=== PATIENT | female | born 1970 | race African-American/Black ===

== ENCOUNTER 2016-10-23 19:00 | Emergency (ER) | payer OTHER ==
[~2016-10-23] VITALS: Ht 170.2 cm; Wt 127.0 kg
[~2016-10-23 19:00] MED LIST: ALBUTEROL SULF8.5 GM INH; AUGMENTIN 875-1 EAC1 ORAL; AUGMENTIN XR 11 EACH ORAL; CEFDINIR300 MG PO; CLARITIN5 MG ORAL; CYCLOBENZAPRINE10 MG ORAL; GUAIFENESIN-CO118 ML ORAL; HYDROCHLOROTHIA25 MG ORAL; IBUPROFEN200 MG ORAL; IBUPROFEN600 MG ORAL; LEVAQUIN750 MG ORAL; LEVOTHYROXINE100 MCG ORAL; MELOXICAM7.5 MG PO; METOPROLOL TART50 M1 ORAL; NORCO 5-325 TA1 EACH ORAL; OMEPRAZOLE20 M2 ORAL; PEPCID40 MG PO; PROAIR HFA8.5 GM INH; PSEUDOEPHEDRINE30 MG PO; SALINE NASAL SP45 ML NASAL; SENNA8.6 M3 PO; TRAMADOL HCL50 MG ORAL; ZOCOR20 M1 ORAL; ZYRTEC10 MG ORAL
[2016-10-23] MEDS ORDERED: METFORMIN HCL1000 M1 ORAL (19:17)
[2016-10-23 19:22] VITALS: BP 141/91
[2016-10-23] MEDS ORDERED: NITROFURANTOIN100 M2 ORAL (19:25)
[2016-10-23 19:31] VITALS: BP 141/91
--- NOTE | 2016-10-23 22:11 | Emergency Room Report ---
History of Present Illness General Chief Complaint: Allergic Reaction Source: Patient Present Illness HPI Patient is a 46-year-old female who presented after having high redness as well as facial discomfort. Patient had previous similar symptoms in the past. As she recently been diagnosed with urinary tract infection. The patient had been started on Bactrim. She denied any fever. She denied any severe abdominal pain. The patient thinks that she may have an allergic reaction as previously to Bactrim. She reports also taking ibuprofen as well as Flexeril. She states she's taken those medications in the past without any problems. Allergies: Coded Allergies: ASPIRIN (Verified Allergy, Intermediate, severe bleeding, 05/25/13) Patient History Past Medical History: see triage record Last Menstrual Period: last month Reviewed Nursing Documentation: PMH: Agreed, PSxH: Agreed Nursing Documentation-PMH Hx Hypertension: Yes Hx Pacemaker: No Hx Asthma: Yes Hx COPD: No Hx Diabetes: Yes Hx Cancer: No Hx Gastrointestinal Problems: Yes - acid reflux Hx Dialysis: No Hx Neurological Problems: No Hx Cerebrovascular Accident: No Hx Seizures: No Hx Dizziness: Yes Review of Systems All Other Systems: negative except mentioned in HPI Physical Exam Vital Signs Date Time Temp Pulse Resp B/P Pulse Ox O2 Delivery O2 Flow Rate FiO2 10/23/16 19:12 98.6 110 16 141/91 98 Room Air General Appearance: well appearing, no apparent distress, alert, GCS 15 Head: normocephalic, atraumatic ENT: hearing grossly normal, normal voice Neck: full range of motion, supple Respiratory: no respiratory distress, speaking full sentences Cardiovascular #1: normal inspection, regular rate, rhythm Gastrointestinal: normal inspection Musculoskeletal: normal inspection, normal range of motion, no calf tenderness Neurologic: normal inspection, alert, oriented x3, responsive, table maker III-XII nml as tested, normal gait Psychiatric: normal inspection, mood/affect normal Skin: no rash Medical Decision Making Diagnostic Impression: Primary Impression: Allergic reaction ER Course Patient presented for possible allergic reaction. Differential diagnosis included was not limited to Law-Liang syndrome, urticaria, erythema multiforme, contact dermatitis. Patient's benign exam and does not appear to require any further imaging or laboratory testing at this time. The patient was advised to discontinue use of Bactrim. The patient was given prescription for Macrobid. She is advised followup with her primary care physician. She denies return if she began having increased eye pain blistering or other concerns. Last Vital Signs Date Time Temp Pulse Resp B/P Pulse Ox O2 Delivery O2 Flow Rate FiO2 10/23/16 19:31 98.6 16 141/91 98 Room Air 10/23/16 19:12 110 Status: improved Disposition: HOME, SELF-CARE Condition: Stable Scripts Nitrofurantoin Monohyd/M-Cryst* (MACROBID 100 MG*) 100 Mg Capsule 100 MG ORAL EVERY 12 HOURS, #10 CAP Prov: Marco Simms 10/23/16 Referrals: [facility]ERR[facility] (PCP) Patient Instructions: Drug Allergy Marco Simms Oct 23, 2016 22:11
== END 2016-10-23 19:31 | disposition home or self-care (01) ==
LOC: EMR 19:30
DX: T78.40XA Allergy, unspecified, initial encounter (principal); X58.XXXA Exposure to other specified factors, initial encounter; E11.9 Type 2 diabetes mellitus without complications; I10 Essential (primary) hypertension; J45.909 Unspecified asthma, uncomplicated; K21.9 Gastro-esophageal reflux disease without esophagitis; Z88.6 Allergy status to analgesic agent
CPT/HCPCS: 99283

== ENCOUNTER 2016-11-22 00:28 | Emergency (ER) | payer OTHER ==
[~2016-11-22] VITALS: Ht 170.2 cm; Wt 122.5 kg
[~2016-11-22 00:28] MED LIST changes: +METFORMIN HCL1000 M1 ORAL; +NITROFURANTOIN100 M2 ORAL
[2016-11-22] MEDS ORDERED: Morphine Sulfate 4mg/ml Inj IVP ONE (00:45)
[2016-11-22 01:03] LABS: BASOPHILS % (AUTO) 0.9 % (0.0-2.0); EOSINOPHILS % (AUTO) 3.1 % (0.0-3.0); LYMPHOCYTES % (AUTO) 37.2 % (20.0-45.0); MEAN CORPUSCULAR HEMOGLOBIN 25.3 PG (27.0-31.0); MEAN CORPUSCULAR HGB CONC 31.7 G/DL (32.0-36.0); MEAN CORPUSCULAR VOLUME 80 FL (80-99); MEAN PLATELET VOLUME 6.8 FL (6.5-10.1); NEUTROPHILS % (AUTO) 52.8 % (45.0-75.0); PLATELET COUNT 442 K/UL (150-450); RED BLOOD COUNT 4.82 M/UL (4.20-5.40); RED CELL DISTRIBUTION WIDTH 14.1 % (11.6-14.8); WHITE BLOOD COUNT 13.3 K/UL (4.8-10.8)
[2016-11-22 01:04] LABS: APPEARANCE,URINE CLEAR; KETONES,URINE NEGATIVE (NEGATIVE); LEUKOCYTE ESTERASE ,URINE 1+ (NEGATIVE); NITRITE,URINE NEGATIVE (NEGATIVE); PH,URINE 6 (4.5-8.0); PROTEIN,URINE 3+ (NEGATIVE); UROBILINOGEN,URINE NORMAL MG/DL (0.0-1.0)
[2016-11-22 01:16] LABS: BACTERIA,URINE FEW /HPF; HYALINE CASTS, URINE 0-2 /LPF; RBC,URINE 0-2 /HPF (0 - 2); SQUAMOUS EPITHELIAL CELL,UR FEW /LPF (NONE/OCC); WBC,URINE 0-2 /HPF (0 - 2)
[2016-11-22 01:18] LABS: ALANINE AMINOTRANSFERASE 39 U/L (3-33); ANION GAP 13 (5-15); ASPARTATE AMINO TRANSFERASE 61 U/L (5-40); CALCIUM 9.7 mg/dL (8.6-10.2); CARBON DIOXIDE 30 mEQ/L (20-30); CHLORIDE 89 mEQ/L (98-107); CREATININE 0.9 mg/dL (0.5-0.9); GLOMERULAR FILTRATION RATE > 60 mL/min (>60); HEMOLYSIS 4; POTASSIUM 2.9 mEQ/L (3.4-4.9); SODIUM 132 mEQ/L (135-145); TOTAL PROTEIN 8.7 g/dL (6.6-8.7); TROPONIN I < 0.30 ng/mL (<=0.30)
[2016-11-22 01:28] LABS: CKMB < 1.5 ng/mL (< 3.8)
[2016-11-22 01:30] VITALS: BP 112/76
[2016-11-22 02:43] VITALS: BP 122/73
[2016-11-22 03:05] VITALS: BP 122/73
--- NOTE | 2016-11-22 03:27 | Emergency Room Report ---
History of Present Illness General Chief Complaint: Chest Pain Source: Patient Present Illness HPI 46-year-old female presents to ED late of chest pain. Per EMS patient noted at chest pain which started approximately 30 minutes prior to arrival. Sudden onset. Left-sided. 8 out of 10. Sharp. Worse with deep breaths. Patient was given nitroglycerin with no relief. Denies fevers or chills. Denies cough. Denies smoking or drug use. No other aggravating relieving factors. Denies any other associated symptoms Allergies: Coded Allergies: ASPIRIN (Verified Allergy, Intermediate, severe bleeding, 05/25/13) SULFA (SULFONAMIDE ANTIBIOTICS) (Unverified Allergy, Unknown, 11/22/16) Patient History Past Medical History: DM, HTN, asthma, GERD Past Surgical History: none Pertinent Family History: none Social History: Denies: alcohol use, drug use, smoking Last Menstrual Period: last night Now: No Immunizations: UTD Reviewed Nursing Documentation: PMH: Agreed, PSxH: Agreed Nursing Documentation-PMH Past Medical History: No History, Except For Hx Hypertension: Yes Hx Pacemaker: No Hx Asthma: Yes Hx COPD: No Hx Diabetes: Yes Hx Cancer: No Hx Gastrointestinal Problems: Yes - acid reflux Hx Dialysis: No Hx Neurological Problems: No Hx Cerebrovascular Accident: No Hx Seizures: No Hx Dizziness: Yes Review of Systems All Other Systems: negative except mentioned in HPI Physical Exam Vital Signs Date Time Temp Pulse Resp B/P Pulse Ox O2 Delivery O2 Flow Rate FiO2 11/22/16 00:15 99.0 106 20 113/79 100 Room Air 11/22/16 01:30 2.0 Sp02 EP Interpretation: reviewed, normal General Appearance: no apparent distress, alert, GCS 15, non-toxic, obese Head: normocephalic, atraumatic Eyes: bilateral eye PERRL, bilateral eye normal inspection ENT: hearing grossly normal, normal pharynx, no angioedema, normal voice Neck: full range of motion, supple/symm/no masses Respiratory: chest non-tender, lungs clear, normal breath sounds, speaking full sentences Cardiovascular #1: regular rate, rhythm, no edema Cardiovascular #2: 2+ carotid (R), 2+ carotid (L), 2+ radial (R), 2+ radial (L) , 2+ dorsalis pedis (R), 2+ dorsalis pedis (L) Gastrointestinal: normal bowel sounds, non tender, soft, non-distended, no guarding, no rebound Rectal: deferred Genitourinary: normal inspection, no CVA tenderness Musculoskeletal: back normal, gait/station normal, normal range of motion, non- tender Neurologic: alert, oriented x3, responsive, motor strength/tone normal, sensory intact, speech normal Psychiatric: judgement/insight normal, memory normal, mood/affect normal, no suicidal/homicidal ideation Reflexes: 3+ bicep (R), 3+ bicep (L), 3+ tricep (R), 3+ tricep (L), 3+ knee (R) , 3+ knee (L) Skin: normal color, no rash, warm/dry, well hydrated Lymphatic: no adenopathy Medical Decision Making Diagnostic Impression: Primary Impression: ACS (acute coronary syndrome) ER Course Hospital Course 46-year-old female presents ED complaining of left-sided chest pain, shortness of breath Differential diagnoses include: [place]/unstable angina, contusion, muscle strain, PTX, rib fracture Clinical course Patient placed on stretcher. on hall monitor. After initial history and physical I ordered labs, EKG, chest x-ray, morphine labs reviewed- no leukocytosis, hb/hct stable, electrolytes ok, D-dimer > 500, trop negative EKG - NSR, no acute changes interpreted by me Chest x-ray- L effusion CTA chest performed to rule out PE which was negative Because of insurance patient will be transferred I. I feel this is a highly complex case requiring extensive working including EKG/Rhythm strip, Xray/CT/US, Blood/urine lab work, repeat exams while in ED, and administration of strong opiates/narcotics for pain control, admission to hospital or close patient follow up. Diagnosis - ACS Patient transferred in serious condition Labs Test 11/22/16 00:35 White Blood Count 13.3 K/UL (4.8-10.8) Red Blood Count 4.82 M/UL (4.20-5.40) Hemoglobin 12.2 G/DL (12.0-16.0) Hematocrit 38.5 % (37.0-47.0) Mean Corpuscular Volume 80 FL (80-99) Mean Corpuscular Hemoglobin 25.3 PG (27.0-31.0) Mean Corpuscular Hemoglobin Concent 31.7 G/DL (32.0-36.0) Red Cell Distribution Width 14.1 % (11.6-14.8) Platelet Count 442 K/UL (150-450) Mean Platelet Volume 6.8 FL (6.5-10.1) Neutrophils (%) (Auto) 52.8 % (45.0-75.0) Lymphocytes (%) (Auto) 37.2 % (20.0-45.0) Monocytes (%) (Auto) 6.0 % (1.0-10.0) Eosinophils (%) (Auto) 3.1 % (0.0-3.0) Basophils (%) (Auto) 0.9 % (0.0-2.0) D-Dimer 558 ng/mL (<500) Urine Color Yellow Urine Appearance Clear Urine pH 6 (4.5-8.0) Urine Specific [place] 1.015 (1.005-1.035) Urine Protein 3+ (NEGATIVE) Urine Glucose (UA) Negative (NEGATIVE) Urine Ketones Negative (NEGATIVE) Urine Occult Blood Negative (NEGATIVE) Urine Nitrite Negative (NEGATIVE) Urine Bilirubin Negative (NEGATIVE) Urine Urobilinogen Normal MG/DL (0.0-1.0) Urine Leukocyte Esterase 1+ (NEGATIVE) Urine RBC 0-2 /HPF (0 - 2) Urine WBC 0-2 /HPF (0 - 2) Urine Squamous Epithelial Cells Few /LPF (NONE/OCC) Urine Bacteria Few /HPF (NONE) Urine Hyaline Casts 0-2 /LPF (NONE) Urine HCG, Qualitative Negative Sodium Level 132 mEQ/L (135-145) Potassium Level 2.9 mEQ/L (3.4-4.9) Chloride Level 89 mEQ/L (98-107) Carbon Dioxide Level 30 mEQ/L (20-30) Anion Gap 13 (5-15) Blood Urea Nitrogen 12 mg/dL (7-23) Creatinine 0.9 mg/dL (0.5-0.9) Estimat Glomerular Filtration Rate > 60 mL/min (>60) Glucose Level 212 mg/dL (74-106) Calcium Level 9.7 mg/dL (8.6-10.2) Total Bilirubin 0.3 mg/dL (0.0-1.2) Aspartate Amino Transf (AST/SGOT) 61 U/L (5-40) Alanine Aminotransferase (ALT/SGPT) 39 U/L (3-33) Alkaline Phosphatase 119 U/L (35-104) Total Creatine Kinase 93 U/L (26-140) Creatine Kinase MB < 1.5 ng/mL (< 3.8) Creatine Kinase MB Relative Index 1.6 Troponin I < 0.30 ng/mL (<=0.30) Pro-B-Type Natriuretic Peptide 5 pg/mL (0-125) Total Protein 8.7 g/dL (6.6-8.7) Albumin 4.4 g/dL (3.5-5.2) Globulin 4.3 g/dL Albumin/Globulin Ratio 1.0 (1.0-2.7) Urine Opiates Screen Negative (NEGATIVE) Urine Barbiturates Screen Negative (NEGATIVE) Phencyclidine (PCP) Screen Negative (NEGATIVE) Urine Amphetamines Screen Negative (NEGATIVE) Urine Benzodiazepines Screen Negative (NEGATIVE) Urine Cocaine Screen Negative (NEGATIVE) Urine Marijuana (THC) Screen Negative (NEGATIVE) EKG Diagnostic Results Rate: normal Rhythm: NSR ST Segments: no acute changes ASA given to the pt in ED: No - allergic to aspirin Rhythm Strip Diag. Results EP Interpretation: yes Rhythm: NSR, no PVC's, no ectopy Chest X-Ray Diagnostic Results Chest X-Ray Diagnostic Results : Chest X-Ray Ordered: Yes # of Views/Limited/Complete: 1 View Indication: Chest Pain EP Interpretation: Yes Interpretation: no consolidation, no pneumothorax, no acute cardiopulmonary disease, other - L effusion Impression: Other - L effusion Interpreting ER Provider: Electronically signed by Kenan Martinez MD CT/MRI/US Diagnostic Results CT/MRI/US Diagnostic Results : Imaging Test Ordered: CTA chest Impression no evidence of PE Last Vital Signs Date Time Temp Pulse Resp B/P Pulse Ox O2 Delivery O2 Flow Rate FiO2 11/22/16 02:43 94 24 Nasal Cannula 2.0 11/22/16 02:43 98.8 122/73 11/22/16 01:30 99 Status: improved Disposition: ADMITTED INPATIENT Condition: Serious Referrals: [facility] (PCP) KENAN MARTINEZ M.D. Nov 22, 2016 03:27
--- NOTE | 2016-11-22 10:09 | Diagnostic Imaging Report ---
Indication: Chest pain Technique: Continuous helical transaxial imaging of the chest was obtained from the thoracic inlet to the upper abdomen during rapid intravenous contrast administration. Arterial phase of enhancement obtained. Coronal 2-D reformats were also obtained and maximum intensity projection images in multiple planes. Study obtained in a Siemens sensation [address] Total Dose length Product (DLP): [address] Dose Index Volume (CTDIvol): 13, 13, 44 mGy Comparison: None Findings: The pulmonary artery is well opacified and shows no filling defects. The lungs are clear except for some minimal posterior basilar atelectasis.. There is no adenopathy, pleural or pericardial effusions are identified. The aortic dissection or aneurysm identified within the chest. Visualized part of the upper abdomen show severe low-attenuation of the liver which appears prominent in size although not completely imaged. Impression: No evidence of pulmonary embolus, aortic dissection or aneurysm. Moderate to severe fatty liver with suggestion of liver enlargement. The CT scanner at [facility] is accredited by the [employer] and the scans are performed using dose optimization techniques as appropriate to a performed exam including Automatic Exposure control.
--- NOTE | 2016-11-22 11:11 | Diagnostic Imaging Report ---
Indication: Chest Comparison: 12/04/14 A single view chest radiograph was obtained. Findings: Cardiomediastinal appearance is within normal limits for age. Pulmonary vascularity is appropriate. The diaphragmatic contour is smooth and costophrenic angles are sharp. No pleural effusions are identified. The bones are unremarkable. The study is limited because of lordotic projection angle. Impression: No acute findings
--- NOTE | 2016-11-23 16:39 | Cardiology Report ---
APPROVED REPORT EKG Measurement Heart [id number] Sinus tachycardia Cannot rule out Anterior infarct, age undetermined Abnormal ECG
== END 2016-11-22 03:05 | disposition short-term general hospital (02) ==
LOC: EDBD 00:28 → EMR 01:01
DX: I24.9 Acute ischemic heart disease, unspecified (principal); I10 Essential (primary) hypertension; J45.909 Unspecified asthma, uncomplicated; E11.9 Type 2 diabetes mellitus without complications; K21.9 Gastro-esophageal reflux disease without esophagitis; Z88.6 Allergy status to analgesic agent; Z88.2 Allergy status to sulfonamides
CPT/HCPCS: 36415; 71010; 71275; 80053; 80300; 81003; 81025; 82550; 82553; 83880; 84484; 85025; 85379; 93005; 96374; 96375; 99285; J2270; J7040; Q9967; J8499

== ENCOUNTER 2017-07-05 10:36 | Emergency (ER) | payer OTHER ==
[~2017-07-05] VITALS: Ht 170.2 cm; Wt 122.5 kg
[2017-07-05] MEDS ORDERED: BACLOFEN10 MG ORAL (10:55)
[2017-07-05] MEDS ORDERED: VICTOZA 2-0.6 MG/0.1 SUBQ (10:55)
[2017-07-05] MEDS ORDERED: LOSARTAN POTASS25 MG ORAL (10:55)
[2017-07-05] MEDS ORDERED: METFORMIN HCL1000 M1 ORAL (10:55)
[2017-07-05] MEDS ORDERED: Bacitracin Oint UD TOPIC ONE ×2 (11:12→11:15)
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
[2017-07-05] MEDS ORDERED: oxyCODONE HCL/Acetaminophen 5/325mg ORAL ONE (12:00)
[2017-07-05 12:04] VITALS: BP 158/100
[2017-07-05 12:05] VITALS: BP 158/100
[2017-07-05] MEDS ORDERED: TYLENOL EXTRA500 MG ORAL (12:13)
== END 2017-07-05 12:07 | disposition home or self-care (01) ==
LOC: EMR 11:00
DX: T23.201A Burn of second degree of right hand, unspecified site, initial encounter (principal); X15.0XXA Contact with hot stove (kitchen), initial encounter; Y92.9 Unspecified place or not applicable; I10 Essential (primary) hypertension; J45.909 Unspecified asthma, uncomplicated; E11.9 Type 2 diabetes mellitus without complications; K21.9 Gastro-esophageal reflux disease without esophagitis; Z88.2 Allergy status to sulfonamides; Z88.6 Allergy status to analgesic agent; Z88.8 Allergy status to other drugs, medicaments and biological substances
CPT/HCPCS: 99283

== ENCOUNTER 2017-09-10 09:29 | Emergency (ER) | payer OTHER ==
[~2017-09-10] VITALS: Ht 170.2 cm; Wt 117.9 kg
[~2017-09-10 09:29] MED LIST changes: +BACLOFEN10 MG ORAL; +LOSARTAN POTASS25 MG ORAL; +TYLENOL EXTRA500 MG ORAL; +VICTOZA 2-0.6 MG/0.1 SUBQ
[2017-09-10 09:41] VITALS: BP 106/63
[2017-09-10] MEDS ORDERED: NITROGLYCERIN2.5 M1 PO (10:16)
[2017-09-10] MEDS ORDERED: VICTOZA 2-0.6 MG/0.1 SUBQ (10:16)
[2017-09-10] MEDS ORDERED: ATORVASTATIN CA40 MG ORAL (10:16)
[2017-09-10 10:25] LABS: APPEARANCE,URINE CLEAR; BILIRUBIN, URINE NEGATIVE (NEGATIVE); COLOR,URINE PALE YELLOW; GLUCOSE, URINE (UA) NEGATIVE (NEGATIVE); KETONES,URINE NEGATIVE (NEGATIVE); LEUKOCYTE ESTERASE ,URINE NEGATIVE (NEGATIVE); NITRITE,URINE NEGATIVE (NEGATIVE); PH,URINE 7 (4.5-8.0); PROTEIN,URINE NEGATIVE (NEGATIVE); UROBILINOGEN,URINE NORMAL MG/DL (0.0-1.0)
--- NOTE | 2017-09-10 10:44 | Emergency Room Report ---
History of Present Illness General Chief Complaint: Abdominal Pain Source: Patient Present Illness HPI Patient present with complaints of suprapubic discomfort Foul-smelling urine however she also complains of right inguinal and lower abdominal pain Off-and-on for the past 7 days She felt that she had increased nausea as well and vomited earlier denies any upper abdominal pain Denies any vaginal discharge Allergies: Coded Allergies: ASPIRIN (Verified Allergy, Intermediate, severe bleeding, 05/25/13) SERTRALINE (Verified Allergy, Unknown, Hives, 07/05/17) SULFA (SULFONAMIDE ANTIBIOTICS) (Unverified Allergy, Unknown, 11/22/16) Patient History Past Medical History: see triage record Pertinent Family History: none Last Menstrual Period: 08/30/17 Now: No Reviewed Nursing Documentation: PMH: Agreed; PSxH: Agreed Nursing Documentation-PMH Past Medical History: No History, Except For Hx Hypertension: Yes Hx Pacemaker: No Hx Asthma: Yes Hx COPD: No Hx Diabetes: Yes - DM2 Hx Cancer: No Hx Gastrointestinal Problems: Yes - acid reflux, tube ligation Hx Dialysis: No Hx Neurological Problems: No Hx Cerebrovascular Accident: No Hx Seizures: No Hx Dizziness: Yes Review of Systems All Other Systems: negative except mentioned in HPI Physical Exam Vital Signs Date Time Temp Pulse Resp B/P (MAP) Pulse Ox O2 Delivery O2 Flow Rate FiO2 09/10/17 09:31 97.7 95 18 139/92 98 Room Air 97.7 Sp02 EP Interpretation: reviewed, normal General Appearance: well appearing, no apparent distress Head: normocephalic, atraumatic Eyes: bilateral eye PERRL, bilateral eye EOMI ENT: hearing grossly normal, normal pharynx, TMs + canals normal, uvula midline Neck: full range of motion, supple, no meningismus, no bony tend Respiratory: lungs clear, normal breath sounds, no rhonchi, no respiratory distress, no retraction, no accessory muscle use Cardiovascular #1: normal peripheral pulses, regular rate, rhythm, no edema, no gallop, no JVD, no murmur Gastrointestinal: normal bowel sounds, non tender, soft, no mass, no organomegaly, non-distended, no guarding, no hernia, no pulsatile mass, no rebound Genitourinary: no CVA tenderness Musculoskeletal: normal inspection Neurologic: oriented x3, responsive, pattern cutter III-XII nml as tested, motor strength/ tone normal, sensory intact Psychiatric: mood/affect normal Skin: normal color, no rash, warm/dry, palpation normal Lymphatic: normal inspection, no adenopathy Medical Decision Making Diagnostic Impression: Primary Impression: Abdominal pain ER Course With the patient's history and examination, multiple differentials considered, including but not limited to , ectopic , ovarian torsion, gastritis, cholecystitis, pancreatitis, appendicitis Patient's urine sample was clean without signs of infection negative CAT scan imaging also does not reveal any signs of appendicitis my consideration for ovarian torsion is low and patient is stable for close outpatient follow-up CT/MRI/US Diagnostic Results CT/MRI/US Diagnostic Results : Impression CT abdomen pelvis no acute disease Last Vital Signs Date Time Temp Pulse Resp B/P (MAP) Pulse Ox O2 Delivery O2 Flow Rate FiO2 09/10/17 09:41 98.0 78 16 106/63 99 Room Air 98.0 Status: improved Disposition: HOME, SELF-CARE Condition: Improved Referrals: NON PHYSICIAN (PCP) Additional Instructions: Patient is provided with the discharge instructions notified to follow up with primary doctor in the next 2-3 days otherwise return to the er with any worsening symptoms. Please note that this report is being documented using Recorrido technology. This can lead to erroneous entry secondary to incorrect interpretation by the dictating instrument. Trish Piña DO September 10, 2017 10:44
[2017-09-10 11:55] VITALS: BP 99/57
[2017-09-10 12:29] VITALS: BP 108/75
== END 2017-09-10 12:29 | disposition home or self-care (01) ==
LOC: EMR 10:05
DX: R10.30 Lower abdominal pain, unspecified (principal); I10 Essential (primary) hypertension; J45.909 Unspecified asthma, uncomplicated; E11.9 Type 2 diabetes mellitus without complications; K21.9 Gastro-esophageal reflux disease without esophagitis; Z88.2 Allergy status to sulfonamides; Z88.8 Allergy status to other drugs, medicaments and biological substances
CPT/HCPCS: 74176; 81003; 81025; 99282

== ENCOUNTER 2017-10-17 20:17 | Emergency (ER) | payer OTHER ==
[~2017-10-17] VITALS: Ht 170.2 cm; Wt 121.1 kg
[~2017-10-17 20:17] MED LIST changes: +ATORVASTATIN CA40 MG ORAL; +NITROGLYCERIN2.5 M1 PO
[2017-10-17 20:55] VITALS: BP 126/85
[2017-10-17 21:19] LABS: APPEARANCE,URINE CLEAR; BILIRUBIN, URINE NEGATIVE (NEGATIVE); COLOR,URINE PALE YELLOW; GLUCOSE, URINE (UA) 4+ (NEGATIVE); KETONES,URINE NEGATIVE (NEGATIVE); LEUKOCYTE ESTERASE ,URINE NEGATIVE (NEGATIVE); NITRITE,URINE NEGATIVE (NEGATIVE); PH,URINE 6.5 (4.5-8.0); PROTEIN,URINE 2+ (NEGATIVE); UROBILINOGEN,URINE NORMAL MG/DL (0.0-1.0)
[2017-10-17 21:21] LABS: EOSINOPHILS % (AUTO) 2.3 % (0.0-3.0); HEMATOCRIT 34.4 % (37.0-47.0); HEMOGLOBIN 10.9 G/DL (12.0-16.0); LYMPHOCYTES % (AUTO) 34.2 % (20.0-45.0); MEAN CORPUSCULAR VOLUME 74 FL (80-99); MONOCYTES % (AUTO) 6.4 % (1.0-10.0); NEUTROPHILS % (AUTO) 56.1 % (45.0-75.0); PLATELET COUNT 465 K/UL (150-450); RED BLOOD COUNT 4.66 M/UL (4.20-5.40); RED CELL DISTRIBUTION WIDTH 15.5 % (11.6-14.8); WHITE BLOOD COUNT 9.4 K/UL (4.8-10.8)
[2017-10-17 21:30] LABS: ANION GAP 8 mmol/L (5-15); BLOOD UREA NITROGEN 8 mg/dL (7-18); CALCIUM 9.3 MG/DL (8.5-10.1); CARBON DIOXIDE 31 MMOL/L (21-32); CHLORIDE 98 MMOL/L (98-107); CREATININE 0.9 MG/DL (0.55-1.30); POTASSIUM 3.3 MMOL/L (3.5-5.1); SODIUM 137 MMOL/L (136-145)
[2017-10-17 21:44] LABS: ALANINE AMINOTRANSFERASE 32 U/L (12-78); ALBUMIN 3.6 G/DL (3.4-5.0); ALBUMIN/GLOBULIN RATIO 0.8 (1.0-2.7); ALKALINE PHOSPHATASE 101 U/L (46-116); ASPARTATE AMINO TRANSFERASE 24 U/L (15-37); BILIRUBIN,TOTAL 0.3 MG/DL (0.2-1.0); CKMB < 0.5 NG/ML (0.0-3.6); CREATINE KINASE 80 U/L (26-308)
[2017-10-17 22:41] VITALS: BP 118/72
[2017-10-17 22:42] VITALS: BP 118/72
--- NOTE | 2017-10-18 01:41 | Emergency Room Report ---
History of Present Illness General Chief Complaint: Chest Pain Source: Patient Present Illness HPI 47-year-old female presents to ED complaining of chest pain. Started yesterday. Dull, 6 out of 10, nonradiating. States that she was prescribed nitroglycerin by her PMD she took the nitroglycerin after the chest pain episodes. States she's been having periodic episodes of chest pain here and there which has required nitroglycerin over the last several weeks. Patient states she also feels her heart racing at times. Is scheduled to have Holter monitor this week. Denies drug use. No other aggravating relieving factors. Denies any other associated symptoms Allergies: Coded Allergies: ASPIRIN (Verified Allergy, Intermediate, severe bleeding, 05/25/13) SERTRALINE (Verified Allergy, Unknown, Hives, 07/05/17) SULFA (SULFONAMIDE ANTIBIOTICS) (Unverified Allergy, Unknown, 11/22/16) Patient History Past Medical History: DM, HTN, GERD Past Surgical History: none Pertinent Family History: none Social History: Denies: smoking, alcohol use, drug use Last Menstrual Period: September Now: No Immunizations: UTD Reviewed Nursing Documentation: PMH: Agreed; PSxH: Agreed Nursing Documentation-PMH Hx Hypertension: Yes Hx Pacemaker: No Hx Asthma: Yes Hx COPD: No Hx Diabetes: Yes - DM2 Hx Cancer: No Hx Gastrointestinal Problems: Yes - acid reflux, tube ligation Hx Dialysis: No Hx Neurological Problems: No Hx Cerebrovascular Accident: No Hx Seizures: No Hx Dizziness: Yes Review of Systems All Other Systems: negative except mentioned in HPI Physical Exam Vital Signs Date Time Temp Pulse Resp B/P (MAP) Pulse Ox O2 Delivery O2 Flow Rate FiO2 10/17/17 20:20 97.8 95 16 126/85 96 Room Air 97.9 Sp02 EP Interpretation: reviewed, normal General Appearance: no apparent distress, alert, GCS 15, non-toxic Head: normocephalic, atraumatic Eyes: bilateral eye normal inspection, bilateral eye PERRL ENT: hearing grossly normal, normal pharynx, no angioedema, normal voice Neck: full range of motion, supple/symm/no masses Respiratory: chest non-tender, lungs clear, normal breath sounds, speaking full sentences Cardiovascular #1: regular rate, rhythm, no edema Cardiovascular #2: 2+ carotid (R), 2+ carotid (L), 2+ radial (R), 2+ radial (L) , 2+ dorsalis pedis (R), 2+ dorsalis pedis (L) Gastrointestinal: normal bowel sounds, non tender, soft, non-distended, no guarding, no rebound Rectal: deferred Genitourinary: normal inspection, no CVA tenderness Musculoskeletal: back normal, gait/station normal, normal range of motion, non- tender Neurologic: alert, oriented x3, responsive, motor strength/tone normal, sensory intact, speech normal Psychiatric: judgement/insight normal, memory normal, mood/affect normal, no suicidal/homicidal ideation Reflexes: 3+ bicep (R), 3+ bicep (L), 3+ tricep (R), 3+ tricep (L), 3+ knee (R) , 3+ knee (L) Skin: normal color, no rash, warm/dry, well hydrated Lymphatic: no adenopathy Medical Decision Making Diagnostic Impression: Primary Impression: Chest pain Qualified Codes: R07.9 - Chest pain, unspecified ER Course Hospital Course 47-year-old F presents ED complaining of chest pain, dizziness Differential diagnoses include: Rib fracture, VA/unstable angina, contusion, muscle strain Clinical course Patient placed on stretcher. After initial history and physical I ordered labs , EKG, chest x-ray. labs reviewed- all electrolytes normal, troponins 0.000, no leukocytosis, hemoglobin/hematocrit stable EKG - NSR, no acute ischemic changes interpreted by me Chest x-ray-no cardiomegaly, no rib fracture, no pneumothorax, no acute process Discussed findings with the patient. Given that patient has had intermittent episodes of pain over the last several days with a negative troponin I feel comfortable the patient can be safely discharged pending close outpatient follow -up. 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 Pain does seem pleuritic to me. I. I feel this is a highly complex case requiring extensive working including EKG/Rhythm strip, Xray/CT/US, Blood/urine lab work, repeat exams while in ED, and administration of strong opiates/narcotics for pain control, admission to hospital or close patient follow up. Diagnosis - chest pain Stable and discharged to home. Instructed to followup with PMD. Return to ED if symptoms recur or worsen Labs Test 10/17/17 20:30 10/17/17 21:00 Urine Color Pale yellow Urine Appearance Clear Urine pH 6.5 (4.5-8.0) Urine Specific [place] 1.010 (1.005-1.035) Urine Protein 2+ (NEGATIVE) Urine Glucose (UA) 4+ (NEGATIVE) Urine Ketones Negative (NEGATIVE) Urine Occult Blood Negative (NEGATIVE) Urine Nitrite Negative (NEGATIVE) Urine Bilirubin Negative (NEGATIVE) Urine Urobilinogen Normal MG/DL (0.0-1.0) Urine Leukocyte Esterase Negative (NEGATIVE) Urine RBC 0-2 /HPF (0 - 2) Urine WBC 0-2 /HPF (0 - 2) Urine Squamous Epithelial Cells Few /LPF (NONE/OCC) Urine Bacteria Few /HPF (NONE) Urine HCG, Qualitative Negative (NEGATIVE) Urine Opiates Screen Negative (NEGATIVE) Urine Barbiturates Screen Negative (NEGATIVE) Phencyclidine (PCP) Screen Negative (NEGATIVE) Urine Amphetamines Screen Negative (NEGATIVE) Urine Benzodiazepines Screen Negative (NEGATIVE) Urine Cocaine Screen Negative (NEGATIVE) Urine Marijuana (THC) Screen Negative (NEGATIVE) White Blood Count 9.4 K/UL (4.8-10.8) Red Blood Count 4.66 M/UL (4.20-5.40) Hemoglobin 10.9 G/DL (12.0-16.0) Hematocrit 34.4 % (37.0-47.0) Mean Corpuscular Volume 74 FL (80-99) Mean Corpuscular Hemoglobin 23.4 PG (27.0-31.0) Mean Corpuscular Hemoglobin Concent 31.7 G/DL (32.0-36.0) Red Cell Distribution Width 15.5 % (11.6-14.8) Platelet Count 465 K/UL (150-450) Mean Platelet Volume 5.7 FL (6.5-10.1) Neutrophils (%) (Auto) 56.1 % (45.0-75.0) Lymphocytes (%) (Auto) 34.2 % (20.0-45.0) Monocytes (%) (Auto) 6.4 % (1.0-10.0) Eosinophils (%) (Auto) 2.3 % (0.0-3.0) Basophils (%) (Auto) 1.0 % (0.0-2.0) Sodium Level 137 MMOL/L (136-145) Potassium Level 3.3 MMOL/L (3.5-5.1) Chloride Level 98 MMOL/L (98-107) Carbon Dioxide Level 31 MMOL/L (21-32) Anion Gap 8 mmol/L (5-15) Blood Urea Nitrogen 8 mg/dL (7-18) Creatinine 0.9 MG/DL (0.55-1.30) Estimat Glomerular Filtration Rate > 60 mL/min (>60) Glucose Level 109 MG/DL (74-106) Calcium Level 9.3 MG/DL (8.5-10.1) Total Bilirubin 0.3 MG/DL (0.2-1.0) Aspartate Amino Transf (AST/SGOT) 24 U/L (15-37) Alanine Aminotransferase (ALT/SGPT) 32 U/L (12-78) Alkaline Phosphatase 101 U/L (46-116) Total Creatine Kinase 80 U/L (26-308) Creatine Kinase MB < 0.5 NG/ML (0.0-3.6) Creatine Kinase MB Relative Index 0.6 Troponin I 0.000 ng/mL (0.000-0.056) Pro-B-Type Natriuretic Peptide 26 pg/mL (0-125) Total Protein 8.2 G/DL (6.4-8.2) Albumin 3.6 G/DL (3.4-5.0) Globulin 4.6 g/dL Albumin/Globulin Ratio 0.8 (1.0-2.7) Lipase 269 U/L (73-393) EKG Diagnostic Results Rate: normal Rhythm: NSR ST Segments: no acute changes ASA given to the pt in ED: No Rhythm Strip Diag. Results EP Interpretation: yes Rhythm: NSR, no PVC's, no ectopy Chest X-Ray Diagnostic Results Chest X-Ray Diagnostic Results : Chest X-Ray Ordered: Yes # of Views/Limited/Complete: 1 View Indication: Chest Pain EP Interpretation: Yes Interpretation: no consolidation, no effusion, no pneumothorax, no acute cardiopulmonary disease Impression: No acute disease Electronically Signed by: Electronically signed by Kenan Martinez MD Last Vital Signs Date Time Temp Pulse Resp B/P (MAP) Pulse Ox O2 Delivery O2 Flow Rate FiO2 10/17/17 22:42 97.9 92 19 118/72 97 Room Air 97.9 Status: improved Disposition: HOME, SELF-CARE Condition: Stable Referrals: [facility] (PCP) Patient Instructions: Nonspecific Chest Pain Kenan Martinez MD Oct 18, 2017 01:41
--- NOTE | 2017-10-18 09:31 | Diagnostic Imaging Report ---
Indication: Chest pain Technique: One view of the chest Comparison: 11/22/2016 Findings: Lungs and pleural spaces are clear. Heart size is normal. No significant interim change Impression: No acute process
--- NOTE | 2017-10-19 15:04 | Cardiology Report ---
APPROVED REPORT EKG Measurement Heart [id number] Normal sinus rhythm Normal ECG
== END 2017-10-17 22:43 | disposition home or self-care (01) ==
LOC: EMR 20:50
DX: R07.9 Chest pain, unspecified (principal); I10 Essential (primary) hypertension; E11.9 Type 2 diabetes mellitus without complications; K21.9 Gastro-esophageal reflux disease without esophagitis; J45.909 Unspecified asthma, uncomplicated; Z88.2 Allergy status to sulfonamides; Z88.6 Allergy status to analgesic agent
CPT/HCPCS: 36415; 71045; 80053; 80307; 81003; 81025; 82550; 82553; 83690; 83880; 84484; 85025; 93005; 99283

== ENCOUNTER 2018-04-01 09:23 | Emergency (ER) | payer OTHER ==
[~2018-04-01] VITALS: Ht 170.2 cm; Wt 117.9 kg
[2018-04-01 09:45] VITALS: BP 120/75
[2018-04-01] MEDS ORDERED: Albuterol/Ipratropium 3ml neb HHN ONE (10:00)
[2018-04-01] MEDS ORDERED: ALBUTEROL SULF8.5 GM INH (10:24)
[2018-04-01] MEDS ORDERED: GUAIFENESIN DM118 M1 ORAL (10:24)
[2018-04-01] MEDS ORDERED: PREDNISONE20 MG ORAL (10:24)
[2018-04-01] MEDS ORDERED: Guaifenesin/DM 10ml syrup ORAL ONE (11:15)
[2018-04-01] MEDS ORDERED: guaiFENesin 100mg/5ml Liq ud ONE (11:34)
[2018-04-01 11:50] VITALS: BP 122/76
--- NOTE | 2018-04-01 12:27 | Diagnostic Imaging Report ---
EXAM: XR Chest, 1 View CLINICAL HISTORY: Chest pain TECHNIQUE: Frontal view of the chest. COMPARISON: Report from chest x-ray dated 10/18/17. No images available. FINDINGS: Lungs: Unremarkable. The lungs appear clear. No confluent pulmonary opacities. Pleural space: Unremarkable. The costophrenic angles are sharp. No visible pneumothorax. Heart: Unremarkable. No cardiomegaly. Mediastinum: Unremarkable. Bones/joints: Unremarkable. IMPRESSION: Unremarkable chest x-ray.
--- NOTE | 2018-04-01 12:42 | Emergency Room Report ---
History of Present Illness General Chief Complaint: Asthma Present Illness HPI Patient is a 47-year-old female presents after increased cough and difficulty breathing. Patient prior history of asthma. Patient reports having increased discomfort worse with respirations. Patient been taking her albuterol without any improvement. Patient denies any fever. She reports having increased dry cough. Allergies: Coded Allergies: ASPIRIN (Verified Allergy, Intermediate, severe bleeding, 05/25/13) SERTRALINE (Verified Allergy, Unknown, Hives, 07/05/17) SULFA (SULFONAMIDE ANTIBIOTICS) (Unverified Allergy, Unknown, 11/22/16) Patient History Past Medical History: see triage record Now: No Reviewed Nursing Documentation: PMH: Agreed; PSxH: Agreed Nursing Documentation-PMH Hx Hypertension: Yes Hx Pacemaker: No Hx Asthma: Yes Hx COPD: No Hx Diabetes: Yes - DM2 Hx Cancer: No Hx Gastrointestinal Problems: Yes - acid reflux, tube ligation Hx Dialysis: No Hx Neurological Problems: No Hx Cerebrovascular Accident: No Hx Seizures: No Hx Dizziness: Yes Review of Systems All Other Systems: negative except mentioned in HPI Physical Exam Vital Signs Date Time Temp Pulse Resp B/P (MAP) Pulse Ox O2 Delivery O2 Flow Rate FiO2 04/01/18 09:32 98.8 91 19 116/74 97 04/01/18 09:45 Room Air 04/01/18 10:14 21 Sp02 EP Interpretation: reviewed, normal General Appearance: normal inspection, well appearing, no apparent distress, alert, GCS 15, obese ENT: normal ENT inspection, hearing grossly normal, normal voice Neck: normal inspection, full range of motion, supple, no bony tend Respiratory: normal inspection, lungs clear, normal breath sounds, no respiratory distress, no retraction, wheezing Cardiovascular #1: regular rate, rhythm, no edema Gastrointestinal: normal inspection, normal bowel sounds, non tender, soft, no guarding, no hernia Genitourinary: no CVA tenderness Musculoskeletal: normal inspection, back normal, normal range of motion Neurologic: normal inspection, alert, oriented x3, responsive, speech normal Psychiatric: normal inspection, judgement/insight normal, mood/affect normal Skin: normal inspection, normal color, no rash Medical Decision Making Diagnostic Impression: Primary Impression: Bronchitis ER Course Patient presented for cough. Differential diagnosis included but was not limited to bronchitis, pneumonia, pulmonary embolism, pericarditis, asthma, foreign body.Patient is given nebulized albuterol with improvement. Patient was given steroids. Repeat lung exam showed improved breath sounds.The patient given prescription for oral steroids as well as medications for cough. Last Vital Signs Date Time Temp Pulse Resp B/P (MAP) Pulse Ox O2 Delivery O2 Flow Rate FiO2 04/01/18 11:50 98.7 86 18 122/76 100 Room Air 04/01/18 10:17 21 Status: improved Disposition: HOME, SELF-CARE Condition: Stable Scripts Albuterol Sulfate* (ALBUTEROL SULFATE MDI*) 8.5 Gm Hfa.aer.ad 2 PUFF INH Q4H PRN for cough/wheezing, #1 EA 0 Refills Prov: Marco Simms MD 04/01/18 Prednisone* (PREDNISONE*) 20 Mg Tablet 40 MG ORAL DAILY, #10 TAB Prov: Marco Simms MD 04/01/18 Guaifenesin/Dextromethorphan (Guaifenesin Dm Syrup) 5 Ml Syrup 1 TSP ORAL Q8H, #118 ML 0 Refills Prov: Marco Simms MD 04/01/18 Patient Instructions: Asthma, Adult Marco Simms MD Apr 01, 2018 12:42
== END 2018-04-01 11:55 | disposition home or self-care (01) ==
LOC: EMR 10:02
DX: J40 Bronchitis, not specified as acute or chronic (principal); R05 Cough; I10 Essential (primary) hypertension; J45.909 Unspecified asthma, uncomplicated; E11.9 Type 2 diabetes mellitus without complications; Z79.51 Long term (current) use of inhaled steroids; Z88.2 Allergy status to sulfonamides; Z88.6 Allergy status to analgesic agent; Z88.8 Allergy status to other drugs, medicaments and biological substances
CPT/HCPCS: 71045; 94640; 94664; 99284; J7512; J7620

== ENCOUNTER 2018-05-16 17:11 | Emergency (ER) | payer OTHER ==
[~2018-05-16] VITALS: Ht 170.2 cm; Wt 117.9 kg
[~2018-05-16 17:11] MED LIST changes: +GUAIFENESIN DM118 M1 ORAL; +PREDNISONE20 MG ORAL
--- NOTE | 2018-05-16 17:32 | NUR ---
ED Nurse Note: Pt walked in the ER from home due to pain on one spot on L sided calf since Monday05/13/18. Pain 10/10 kodak. Pt tries hot/cold therapy but pain still remains the same. AOx4, VSS. Will cont to monitor.
[2018-05-16] MEDS ORDERED: Isovue-370 150ml vial INJ PRN (17:45)
--- NOTE | 2018-05-16 17:58 | NUR ---
ED Nurse Note: US at the bedside.
[2018-05-16 18:21] VITALS: BP 106/66
[2018-05-16 18:21] LABS: APPEARANCE,URINE CLEAR; BILIRUBIN, URINE NEGATIVE (NEGATIVE); COLOR,URINE PALE YELLOW; GLUCOSE, URINE (UA) 4+ (NEGATIVE); KETONES,URINE NEGATIVE (NEGATIVE); LEUKOCYTE ESTERASE ,URINE NEGATIVE (NEGATIVE); NITRITE,URINE NEGATIVE (NEGATIVE); PH,URINE 7 (4.5-8.0); PROTEIN,URINE NEGATIVE (NEGATIVE); UROBILINOGEN,URINE NORMAL MG/DL (0.0-1.0)
[2018-05-16 18:24] LABS: ANION GAP 12 mmol/L (5-15); BLOOD UREA NITROGEN 10 mg/dL (7-18); CALCIUM 9.1 MG/DL (8.5-10.1); CARBON DIOXIDE 29 MMOL/L (21-32); CHLORIDE 98 MMOL/L (98-107); POTASSIUM 2.9 MMOL/L (3.5-5.1); SODIUM 139 MMOL/L (136-145)
[2018-05-16 18:26] LABS: INR 0.9 (0.9-1.1)
[2018-05-16 18:34] LABS: BASOPHILS % (AUTO) 1.1 % (0.0-2.0); EOSINOPHILS % (AUTO) 1.6 % (0.0-3.0); HEMATOCRIT 39.1 % (37.0-47.0); HEMOGLOBIN 12.3 G/DL (12.0-16.0); LYMPHOCYTES % (AUTO) 24.5 % (20.0-45.0); MEAN CORPUSCULAR VOLUME 74 FL (80-99); MONOCYTES % (AUTO) 6.6 % (1.0-10.0); NEUTROPHILS % (AUTO) 66.2 % (45.0-75.0); PLATELET COUNT 502 K/UL (150-450); RED BLOOD COUNT 5.26 M/UL (4.20-5.40); WHITE BLOOD COUNT 15.6 K/UL (4.8-10.8)
[2018-05-16 18:39] LABS: ALANINE AMINOTRANSFERASE 38 U/L (12-78); ALBUMIN 3.9 G/DL (3.4-5.0); ALBUMIN/GLOBULIN RATIO 0.8 (1.0-2.7); ALKALINE PHOSPHATASE 120 U/L (46-116); ASPARTATE AMINO TRANSFERASE 25 U/L (15-37); BILIRUBIN,TOTAL 0.3 MG/DL (0.2-1.0); CKMB < 0.5 NG/ML (0.0-3.6); CREATINE KINASE 98 U/L (26-308)
--- NOTE | 2018-05-16 18:53 | NUR ---
ED Nurse Note: Xray at the bedside.
--- NOTE | 2018-05-16 19:10 | NUR ---
ED Nurse Note: Received report from Isabel/FAWAD. Pt is a/o x 4.VSS. Pt came back from X-ray.
[2018-05-16] MEDS ORDERED: Ketorolac 30mg Inj IV ONE (20:00)
--- NOTE | 2018-05-16 21:22 | Emergency Room Report ---
History of Present Illness General Chief Complaint: Pain Source: Patient Present Illness HPI Patient notes that she has had pain in the upper left calf for the past did the patient states that the pain is worse with walking. She admits that she did go on a hike. She denies any knowledgeable injury. She denies fever or chills. She denies recent illness. She states that back on Monday she did have an episode of chest pressure and tingling in her hands. She states she has had no further symptoms like this since. She denies shortness of breath or chest pain at this time. She has no other complaints. Allergies: Coded Allergies: ASPIRIN (Verified Allergy, Intermediate, severe bleeding, 05/25/13) SERTRALINE (Verified Allergy, Unknown, Hives, 07/05/17) SULFA (SULFONAMIDE ANTIBIOTICS) (Unverified Allergy, Unknown, 11/22/16) Patient History Past Medical History: see triage record, DM, HTN, asthma Social History: Denies: smoking, alcohol use, drug use Last Menstrual Period: hyst Now: No Reviewed Nursing Documentation: PMH: Agreed; PSxH: Agreed Nursing Documentation-PMH Past Medical History: No History, Except For Hx Cardiac Problems: Yes - hyperthroidism, hyperlipidemia Hx Hypertension: Yes Hx Pacemaker: No Hx Asthma: Yes Hx COPD: No Hx Diabetes: Yes Hx Cancer: No Hx Gastrointestinal Problems: Yes - acid reflux, tube ligation Hx Dialysis: No Hx Neurological Problems: No Hx Cerebrovascular Accident: No Hx Seizures: No Hx Dizziness: Yes Review of Systems All Other Systems: negative except mentioned in HPI Physical Exam Vital Signs Date Time Temp Pulse Resp B/P (MAP) Pulse Ox O2 Delivery O2 Flow Rate FiO2 05/16/18 17:19 98.4 102 14 106/69 97 Room Air Sp02 EP Interpretation: reviewed, normal General Appearance: no apparent distress, alert, GCS 15, non-toxic Head: normocephalic, atraumatic Eyes: bilateral eye normal inspection, bilateral eye PERRL ENT: hearing grossly normal, normal pharynx, no angioedema, normal voice Neck: full range of motion, supple/symm/no masses Respiratory: chest non-tender, lungs clear, normal breath sounds, no respiratory distress, no retraction, no accessory muscle use, speaking full sentences Cardiovascular #1: regular rate, rhythm, no edema Gastrointestinal: normal bowel sounds, non tender, soft, non-distended, no guarding, no rebound Rectal: deferred Musculoskeletal: back normal, gait/station normal, normal range of motion, calf tenderness - Exquistely TTP over the L. lateral calf. No swelling. No erythema Neurologic: alert, oriented x3, responsive, motor strength/tone normal, sensory intact, speech normal Psychiatric: judgement/insight normal, memory normal, mood/affect normal, no suicidal/homicidal ideation Skin: normal color, no rash, warm/dry, well hydrated Medical Decision Making Diagnostic Impression: Primary Impression: Muscle strain Additional Impressions: Muscle cramps Hypokalemia ER Course This patient has a clinical presentation consistent with muscle strain/muscle pain. There are no red flags on physical exam or history that would make me concerned for underlying fracture. Therefore, I do not feel that I need to obtain imaging studies. However, given the location of the pain I did feel that I should rule out DVT. Venous ultrasound of the left lower extremity was obtained is no evidence of DVT. The patient had also reported chest pressure and numbness in her hands, so I also obtained a CTA of the chest as a precaution to rule out PE which was also unremarkable. The patient has pain with range of motion and has tenderness to palpation along the muscle. There is no evidence of compartment syndrome. There is no neurologic deficit. The patient was instructed on supportive home measures. No emergency medical condition was identified. The patient was given return precautions and followup instructions. Laboratory Tests Test 05/16/18 17:30 05/16/18 17:35 Urine Color Pale yellow Urine Appearance Clear Urine pH 7 (4.5-8.0) Urine Specific [place] 1.005 (1.005-1.035) Urine Protein Negative (NEGATIVE) Urine Glucose (UA) 4+ (NEGATIVE) H Urine Ketones Negative (NEGATIVE) Urine Blood Negative (NEGATIVE) Urine Nitrite Negative (NEGATIVE) Urine Bilirubin Negative (NEGATIVE) Urine Urobilinogen Normal MG/DL (0.0-1.0) Urine Leukocyte Esterase Negative (NEGATIVE) Urine Opiates Screen Negative (NEGATIVE) Urine Barbiturates Screen Negative (NEGATIVE) Phencyclidine (PCP) Screen Negative (NEGATIVE) Urine Amphetamines Screen Negative (NEGATIVE) Urine Benzodiazepines Screen Negative (NEGATIVE) Urine Cocaine Screen Negative (NEGATIVE) Urine Marijuana (THC) Screen Negative (NEGATIVE) White Blood Count 15.6 K/UL (4.8-10.8) H Red Blood Count 5.26 M/UL (4.20-5.40) Hemoglobin 12.3 G/DL (12.0-16.0) Hematocrit 39.1 % (37.0-47.0) Mean Corpuscular Volume 74 FL (80-99) L Mean Corpuscular Hemoglobin 23.3 PG (27.0-31.0) L Mean Corpuscular Hemoglobin Concent 31.3 G/DL (32.0-36.0) L Red Cell Distribution Width 16.0 % (11.6-14.8) H Platelet Count 502 K/UL (150-450) H Mean Platelet Volume 6.1 FL (6.5-10.1) L Neutrophils (%) (Auto) 66.2 % (45.0-75.0) Lymphocytes (%) (Auto) 24.5 % (20.0-45.0) Monocytes (%) (Auto) 6.6 % (1.0-10.0) Eosinophils (%) (Auto) 1.6 % (0.0-3.0) Basophils (%) (Auto) 1.1 % (0.0-2.0) Prothrombin Time 10.0 SEC (9.30-11.50) Prothrombin Time INR 0.9 (0.9-1.1) PTT 34 SEC (23-33) H Sodium Level 139 MMOL/L (136-145) Potassium Level 2.9 MMOL/L (3.5-5.1) L Chloride Level 98 MMOL/L (98-107) Carbon Dioxide Level 29 MMOL/L (21-32) Anion Gap 12 mmol/L (5-15) Blood Urea Nitrogen 10 mg/dL (7-18) Creatinine 1.0 MG/DL (0.55-1.30) Estimate Glomerular Filtration Rate > 60 mL/min (>60) Glucose Level 127 MG/DL (74-106) H Calcium Level 9.1 MG/DL (8.5-10.1) Total Bilirubin 0.3 MG/DL (0.2-1.0) Aspartate Amino Transferase (AST) 25 U/L (15-37) Alanine Aminotransferase (ALT) 38 U/L (12-78) Alkaline Phosphatase 120 U/L (46-116) H Total Creatine Kinase 98 U/L (26-308) Creatine Kinase MB < 0.5 NG/ML (0.0-3.6) Creatine Kinase MB Relative Index 0.5 Troponin I 0.000 ng/mL (0.000-0.056) Total Protein 8.8 G/DL (6.4-8.2) H Albumin 3.9 G/DL (3.4-5.0) Globulin 4.9 g/dL Albumin/Globulin Ratio 0.8 (1.0-2.7) L EKG Diagnostic Results Rate: normal Rhythm: NSR ST Segments: no acute changes Rhythm Strip Diag. Results EP Interpretation: yes Rate: 90's Rhythm: NSR, no PVC's, no ectopy Chest X-Ray Diagnostic Results Chest X-Ray Diagnostic Results : Chest X-Ray Ordered: Yes # of Views/Limited/Complete: 1 View Indication: Chest Pain EP Interpretation: Yes Interpretation: no consolidation, no effusion, no pneumothorax, no acute cardiopulmonary disease Impression: No acute disease Electronically Signed by: Katalina Barboza DO CT/MRI/US Diagnostic Results CT/MRI/US Diagnostic Results : Imaging Test Ordered: CT Chest Impression No e/o PE. See official report. Last Vital Signs Date Time Temp Pulse Resp B/P (MAP) Pulse Ox O2 Delivery O2 Flow Rate FiO2 05/16/18 18:21 98.4 74 12 106/66 98 Room Air Status: improved Disposition: HOME, SELF-CARE Condition: Improved Referrals: [facility] (PCP) Katalina Barboza DO May 16, 2018 21:22
[2018-05-16] MEDS ORDERED: IBUPROFEN800 MG ORAL (21:36)
[2018-05-16] MEDS ORDERED: LIDODERM700 M1 TOPIC (21:36)
[2018-05-16 21:46] VITALS: BP 108/63
--- NOTE | 2018-05-16 21:46 | NUR ---
ED Nurse Note: Pt has seen by , all orders carried out. Pt is ready for d/c. D/C instruction and prescription given to Pt and verbalized understanding. IV/ID band removed. Pt D/c from ED with steady gait and all her belongings.
--- NOTE | 2018-05-17 09:55 | Diagnostic Imaging Report ---
Indication: Left leg pain and edema Technique: Grayscale and duplex images of the left lower cavity veins Comparison: none Findings: Grayscale and duplex images demonstrate no evidence of intraluminal thrombus. Normal compressibility of all the deep veins. Normal phasic Doppler waveforms. Impression: Negative for left lower extremity deep venous thrombosis This agrees with the preliminary interpretation provided overnight by [facility] teleradiology service.
--- NOTE | 2018-05-17 10:02 | Diagnostic Imaging Report ---
ndication: Chest pain Technique: IV administration nonionic contrast. Spiral acquisitions obtained from the lung bases to the lung apices. Multiplanar and 3-D reconstructions were generated. Total dose length product 1337.15 mGycm. CTDIvol(s) 39.34 mGy. Dose reduction achieved using automated exposure control Comparison: 11/22/2016 contrast bolus opacification of pulmonary arteries is somewhat suboptimal, small distal pulmonary emboli could be missed. No definite large vessel central pulmonary embolus demonstrated. Normal caliber pulmonary arteries. No evidence of right ventricular dilatation. No evidence of thoracic aortic aneurysm or dissection. Classic branching anatomy of the great neck vessels. Proximal abdominal visceral vessels appear patent, unremarkable. The lungs are clear. No infiltrates, effusions, nodules, or masses demonstrated. The heart is upper limits normal in size. No pericardial effusion. No mediastinal or hilar mass or adenopathy. The included portions of the thyroid are unremarkable. No axillary or chest wall mass or adenopathy. Included upper abdomen demonstrates enlarged hypoattenuating liver. The bones are unremarkable. There is no significant interim change Findings: No evidence of acute pulmonary embolus or other acute thoracic pathology Enlarged fatty liver, also previously reported Impression: The CT scanner at [facility] is accredited by the [employer] and the scans are performed using protocols designed to limit radiation exposure to as low as reasonably achievable to attain images of sufficient resolution adequate for diagnostic evaluation.
--- NOTE | 2018-05-17 11:53 | Diagnostic Imaging Report ---
Indication: Chest pain Technique: One view of the chest Comparison: 04/01/2018 Findings: Lungs and pleural spaces are clear. Heart size is normal. No significant interim change Impression: No acute process
== END 2018-05-16 21:46 | disposition home or self-care (01) ==
LOC: EMR 18:11
DX: S86.112A Strain of other muscle(s) and tendon(s) of posterior muscle group at lower leg level, left leg, initial encounter (principal); Y93.01 Activity, walking, marching and hiking; Y92.89 Other specified places as the place of occurrence of the external cause; R25.2 Cramp and spasm; E87.6 Hypokalemia; I10 Essential (primary) hypertension; E11.9 Type 2 diabetes mellitus without complications; J45.909 Unspecified asthma, uncomplicated; Z88.2 Allergy status to sulfonamides; Z88.6 Allergy status to analgesic agent; K76.0 Fatty (change of) liver, not elsewhere classified
CPT/HCPCS: 36415; 71045; 71275; 80053; 80307; 81003; 82550; 82553; 84484; 85025; 85610; 85730; 93005; 93971; 96361; 96374; 99284; J1885; Q9967; J8499